=== PATIENT | male | born 1985 | race Caucasian/White ===

== ENCOUNTER 2020-08-21 15:49 | Emergency (ER) | payer MEDICAID, SELFPAY ==
--- NOTE | ~2020-08-21 | XR_ITS ---
EXAMINATION: XR CHEST CLINICAL INFORMATION: Chest pain x3 weeks COMPARISON: None TECHNIQUE: Frontal view of the chest was obtained. FINDINGS: No significant abnormality is noted involving the heart, lungs, mediastinum, bony thorax or soft tissues. XR/XR chest 1V IMPRESSION: Unremarkable examination.
[2020-08-21 16:12] VITALS: BP 124/67; PULSE 79; RESP 15; TEMP 36.8; O2SAT 100; BMI 22.5
[2020-08-21 16:58] LABS: COVID-19 Test Negative (Negative)
--- NOTE | 2020-08-21 17:38 | ED_ITS ---
HPI - General Adult General Chief complaint: Overdose Stated complaint: OPIATE OVERDOSE,2MG NARCAN Time Seen by Provider: 08/21/20 17:19 Source: patient Mode of arrival: ambulatory Limitations: no limitations History of Present Illness HPI narrative: Patient presents to the ED for accidental overdose on heroin. Patient states he was not trying to kill himself. Patient states he was taking heroin to have relief from his chest pain and back pain. Patient states having chest and back pain for the past 3 weeks. Patient states hard to take a deep breath. Patient states no fever or chills. Patient wanting to make sure ther was not having walking pneumonia. Patient denies any swelling of lower extremities, coughing up blood, calf pain, recent long travel, or recent surgery. Related Data Allergies Allergy/AdvReac Type Severity Reaction Status Date / Time No Known Allergies Allergy Verified 08/21/20 17:26 Review of Systems Review of Systems: Yes all other systems are reviewed and are negative Constitutional: Constitutional: Reports as per HPI and Reports no additional constitutional complaints Eyes: Eyes: Reports as per HPI and Reports no additional eye complaints ENT: Reports system reviewed and no additional complaints, except as documented and Reports as per HPI Cardiovascular: Cardiovascular: Reports as per HPI, Reports no additional cardiovascular complaints and Reports chest pain Respiratory: Respiratory: Reports as per HPI and Reports no additional respiratory complaints Gastrointestinal: Gastrointestinal: Reports as per HPI and Reports no additional gastrointestinal complaints Genitourinary: Genitourinary: Reports no additional male genitourinary complaints and Reports as per HPI Musculoskeletal: Musculoskeletal: Reports no additional musculoskeletal complaints and Reports as per HPI Neurologic: Reports system reviewed and no additional complaints, except as documented and Reports as per HPI Psychiatric: Psychiatric: Reports no additional psychiatric complaints and Reports as per HPI [facility] Social History Social History Advance Directives: No Advance Directives Information Provided: No Physical Exam Vital Signs: Vital Signs: Last Vital Signs Temp 98.3 F 08/21/20 16:12 Pulse 79 08/21/20 16:12 Resp 15 08/21/20 16:12 BP 124/67 08/21/20 16:12 Pulse Ox 100 08/21/20 16:12 Body Mass Index 22.5 Const: General: cooperative, healthy appearing, comfortable, no acute distress, well developed, alert, awake and Physically active Orientation/consciousness: patient oriented x3 HENMT: Head: Yes normal to inspection, Yes No palpable skull fracture present, Yes normocephalic, Yes atraumatic, No abrasion, No Vallejo's sign, No contusion, No cranial bruits, No hematoma, No laceration, No occipital foramen tenderness, No palpable skull fracture, No raccoon eyes, No scalp lesion, No scalp tenderness, No Temporal artery tenderness present and No periorbital ecchymosis Eyes: General: appearance normal, both eyes and all related structures Neck: Neck: Yes normal visual inspection, Yes full ROM, Yes no lymphadenopathy, Yes no meningeal signs, Yes trachea midline, Yes supple and No tender Chest: Chest palpation & inspection: normal inspection of the chest and normal palpation of entire chest wall Resp: Effort & Inspection: normal respiratory effort and able to speak in complete sentences Auscultation: clear to auscultation bilaterally Cardio: Jugular venous distension: no JVD GI: Inspection: Yes normal to inspection and No abdominal wall ecchymosis Palpation (GI): Soft to palpation, not firm, nontender, no guarding and not rigid : General: No CVA tenderness and Yes no CVA tenderness Back/Spine/Pelvis: Back: no CVA tenderness, No CVA tenderness and No back tenderness Skin: General skin exam: no rashes or lesions noted and elasticity normal Neuro: General: patient oriented x3, no meningeal signs and CN's II-XI intact bilaterally Cranial nerves: Yes CN's II-XII intact bilaterally Extrem: Other: Lower extremities negative for any swelling, pitting edema, calf tenderness General: Yes normal to inspection and Yes full ROM Psych: Appearance: grossly normal, well kempt and not disheveled Course Course Course Narrative: Patient is accidental overdose. Patient does not need [facility] crisis evaluation. Patient presently alert oriented x3. Because patient self informed that he had chest pain and back pain for the past 3 weeks. Patient will have a medical workup including cardiac. Patient is agreeable to plan. Reevaluation(s) Reevaluation #1: Patient no longer wants a medical evaluation. Patient would like to be discharged. Patient then to verbal argument with nursing staff. Patient informed risk of if cardiac evaluation is not done, but patient still like to leave against medical advice. Patient inform risk of pneumonia, PE, heart attack, respiratory failure, and and still want to sign out against medical advice. Patient is alert oriented x3 with normal gait Medical Decision Making MDM Narrative Medical decision making narrative: Work accidental overdose Lab Data Labs: Lab Results 08/21/20 Range/Units 16:23 COVID-19 ([facility]) Negative (Negative) COVID-19 Clin Com See Note Discharge Plan Discharge Clinical Impression: Drug overdose, Chest pain Patient Disposition: Left Against Medical Advice Instructions: Chest Pain (ED), Polysubstance Abuse (ED), Adult Overdose (ED) Additional Instructions: Return to the ED for any chest pain, shortness of breath, passing out, weakness, leg swelling, calf pain, coughing up blood, fever, chills, any other concerning symptoms. Stand Alone Forms: Against Medical Advice Interventions: ED Discharge Assessment Last Done: 08/21/20 18:03 Discharge Date/Time: 08/21/20 18:04 Print Language: Citizen Of [place]
--- NOTE | 2020-08-21 17:56 | PC.NURSE ---
Pt screaming on phone with girlfriend swearing and arguing very loud. It was asked of the patient numerous times to keep his voice down and he was not compliant in doing that. He was seen by ED provider and is now requesting to leave AMA.
== END 2020-08-21 18:04 | disposition left against medical advice (07) ==
PROVIDERS: Emergency Provider Internal Medicine
DX: T40.1X1A Poisoning by heroin, accidental (unintentional), initial encounter (principal); Y92.9 Unspecified place or not applicable; R07.9 Chest pain, unspecified; M54.9 Dorsalgia, unspecified; Z20.822 Contact with and (suspected) exposure to COVID-19
CPT/HCPCS: 36415; 71045; 87635; 99283